=== PATIENT | female | born 1970 | race Caucasian/White ===

== ENCOUNTER → 2024-06-02 13:54 | Outpatient (REF) | payer OTHER, SELFPAY | LOC: RCS 13:54 | PROVIDERS: ATTENDING PHYSICIAN Internal Medicine Cardiovascular Disease; FAMILY PHYSICIAN Family Medicine | DX: R00.2 Palpitations (principal); Z82.49 Family history of ischemic heart disease and other diseases of the circulatory system | CPT/HCPCS: 93306 ==

== ENCOUNTER → 2024-10-06 13:40 | Outpatient (REF) | payer OTHER, SELFPAY | LOC: RCS 13:40 | PROVIDERS: ATTENDING PHYSICIAN Internal Medicine Cardiovascular Disease; FAMILY PHYSICIAN Family Medicine | DX: I49.3 Ventricular premature depolarization (principal); R07.89 Other chest pain; I25.10 Atherosclerotic heart disease of native coronary artery without angina pectoris | CPT/HCPCS: 93017; 93350 ==